=== PATIENT | female | born 1980 | race Caucasian/White ===

== ENCOUNTER 2017-07-17 20:41 | Emergency (ER) | payer SELFPAY ==
[2017-07-17 20:43] VITALS: BP 120/74; PULSE 72; RESP 18; TEMP 97.7; O2SAT 88
[2017-07-17] MEDS ORDERED: SODIUM CHLOR 0.9% 1000 ML INJ 1,000 ML IV ONE (21:11)
[2017-07-17] MEDS ORDERED: PROCHLORPERAZINE INJ 10 MG/2 ML VIAL IVP ONE (21:15)
[2017-07-17] MEDS ORDERED: diphenhydrAMINE HCL 50 MG/ML VIAL IVP ONE (21:15)
[2017-07-17] MEDS ORDERED: SODIUM CHLORIDE 0.9% FLUSH 10 ML FLUSH IVF PRN (21:15)
[2017-07-17] MEDS ORDERED: ACETAMINOPHEN 325 MG TAB PO ONE (21:15)
[2017-07-17 21:36] VITALS: O2SAT 100
[2017-07-17] MEDS ORDERED: PROM25TA10 PO (22:16)
--- NOTE | 2017-07-17 22:16 | PD ---
HPI Chief Complaint: Headache Time Seen by Provider: 21:06 Travel History International Travel<30 days: No Contact w/Intl Traveler<30days: No Traveled to known affect area: No History of Present Illness HPI 37-year-old female complains of frontal headache for 3 days onset was while patient was asleep and she woke up with the pain. It's been constant. She reports a subjective fever. No nausea vomiting reported. She thinks she may have a rash along the posterior neck. She has a history of migraines, most recently a few months prior. Positive photophobia. No loss of consciousness. No weakness. PFSH Past Medical History ?: Not LMP: 07/16/17 Tubal Ligation: Yes Social History Alcohol Use: No Tobacco Use: Yes (1/2 PPD) Substance Use: No Allergies-Medications (Allergen,Severity, Reaction): Coded Allergies: No Known Allergies (Unverified , 07/17/17) Reported Meds & Prescriptions Reported Meds & Active Scripts Active No Active Prescriptions or Reported Medications Review of Systems Except as stated in HPI: all other systems reviewed are Neg Physical Exam Narrative GENERAL: 37 yo F, WNWD, NAD SKIN: Warm and dry. HEAD: Atraumatic. Normocephalic. EYES: Pupils equal and round. No scleral icterus. No injection or drainage. ENT: No nasal bleeding or discharge. Mucous membranes pink and moist. NECK: Trachea midline. No JVD. CARDIOVASCULAR: Regular rate and rhythm. RESPIRATORY: No accessory muscle use. Clear to auscultation. Breath sounds equal bilaterally. GASTROINTESTINAL: Abdomen soft, non-tender, nondistended. Hepatic and splenic margins not palpable. MUSCULOSKELETAL: Extremities without clubbing, cyanosis, or edema. No obvious deformities. NEUROLOGICAL: Awake and alert. Speaking full sentences. The pupils are equal and reactive to light. The extraocular muscles are intact. Normal range of motion and a conjugate gaze. Cerebellar function is normal. PSYCHIATRIC: Appropriate mood and affect; insight and judgment normal. Data Data Last Documented VS Vital Signs Date Time Temp Pulse Resp B/P (MAP) Pulse Ox O2 Delivery O2 Flow Rate FiO2 07/17/17 21:36 100 Room Air 07/17/17 20:43 97.7 72 18 Vital Signs Date Time Temp Pulse Resp B/P (MAP) Pulse Ox O2 Delivery O2 Flow Rate FiO2 07/17/17 21:36 100 Room Air 07/17/17 20:43 97.7 72 18 120/74 (89) 88 Orders Orders Ecg Monitoring (07/17/17 21:11) Iv Access Insert/Monitor (07/17/17 21:11) Oximetry (07/17/17 21:11) Sodium Chloride 0.9% Flush (Ns Flush) (07/17/17 21:15) Acetaminophen (Tylenol) (07/17/17 21:15) Prochlorperazine Inj (Compazine Inj) (07/17/17 21:15) Diphenhydramine Inj (Benadryl Inj) (07/17/17 21:15) Sodium Chlor 0.9% 1000 Ml Inj (Ns 1000 M (07/17/17 21:11) MDM Medical Decision Making Medical Screen Exam Complete: Yes Emergency Medical Condition: Yes Medical Record Reviewed: Yes Differential Diagnosis Migraine, tension headache, cluster headache, hemorrhage, meningitis Narrative Course Patient received IV fluids and Compazine Benadryl Tylenol and experience resolution of symptoms at 10:10 PM. Presentation c/w migraine. Compazine prescription. Diagnosis Primary Impression: Migraine Qualified Codes: G43.909 - Migraine, unspecified, not intractable, without status migrainosus Referrals: Primary Care Physician 2 days Med/Other Pt SpecificInfo: Prescription(s) given Scripts Promethazine (Phenergan) 25 Mg Tablet 25 MG PO Q6H Y for NAUSEA OR VOMITING, #20 TAB 0 Refills Prov: Alejandro Robledo MD 07/17/17 Disposition: 01 DISCHARGE HOME Condition: Stable Alejandro Robledo MD Jul 17, 2017 22:16
== END 2017-07-17 22:53 | disposition home or self-care (01) ==
LOC: NEPE 20:41
DX: G43.909 Migraine, unspecified, not intractable, without status migrainosus (principal); R21 Rash and other nonspecific skin eruption; F17.200 Nicotine dependence, unspecified, uncomplicated
CPT/HCPCS: 96361; 96374; 96375; 99284; J0780; J1200; J7030

== ENCOUNTER 2017-07-31 22:16 | Emergency (ER) | payer SELFPAY ==
[~2017-07-31] VITALS: Ht 165.1 cm; Wt 57.5 kg
[~2017-07-31 22:16] MED LIST: PROM25TA10 PO
[2017-07-31 22:18] VITALS: BP 118/72; PULSE 70; RESP 18; TEMP 97.7; O2SAT 100
[2017-07-31 22:47] VITALS: BP 118/72; PULSE 70; RESP 16; TEMP 97.7; O2SAT 100
--- NOTE | 2017-07-31 23:22 | PD ---
HPI Chief Complaint: Complaint Time Seen by Provider: 23:19 Travel History International Travel<30 days: No Contact w/Intl Traveler<30days: No Traveled to known affect area: No History of Present Illness HPI 37 year-old female presents to the emergency department for complaint of urinary frequency urgency dysuria and hematuria. Patient states that she has had kidney infections and urinary infections in the past and has had symptoms for approximately one week. Patient states due to persistent symptoms decided to come to the emergency room for evaluation. Patient also has history of kidney stones but states not having similar pain or presentation. Patient denies other concerns or complaints. No fever no chills no nausea no vomiting no flank pain and does not report any vaginal discharge or vaginal bleeding or concern for . The patient rates her pain 5 7/10 in intensity. PFSH Past Medical History Narrative Medical Anxiety depression urine tract infections kidney stones tubal ligation and exploratory laparotomy tobacco use Anxiety: Yes Depression: Yes Patient Takes Glucophage: No Tetanus Vaccination: Unknown Influenza Vaccination: No ?: Not LMP: 07/20/2017 Tubal Ligation: Yes Past Surgical History Abdominal Surgery: Yes (EXPLORATORY LAP FOR FB) Gynecologic Surgery: Yes (TL) Social History Alcohol Use: No Tobacco Use: Yes (/2 PPD) Substance Use: No Allergies-Medications (Allergen,Severity, Reaction): Coded Allergies: No Known Allergies (Unverified , 07/31/17) Reported Meds & Prescriptions Reported Meds & Active Scripts Active No Active Prescriptions or Reported Medications Review of Systems Except as stated in HPI: all other systems reviewed are Neg General / Constitutional: No: Fever, Chills HENT: No: Congestion Cardiovascular: No: Chest Pain or Discomfort Respiratory: No: Shortness of Breath Gastrointestinal: Positive: Abdominal Pain, No: Nausea, Vomiting Genitourinary: Positive: Urgency (left lower quadrant tenderness), Frequency, Dysuria, Hematuria, No: Flank Pain Musculoskeletal: No: Myalgias, Arthralgias Skin: No Rash Hematologic/Lymphatic: No: Lymph Node Enlargement Physical Exam Narrative GENERAL: Well-developed well-nourished female in no acute distress no respiratory distress; triage vital signs and normal range SKIN: Warm and dry. HEAD: Normocephalic. EYES: No scleral icterus. No injection or drainage. NECK: Supple, trachea midline. No JVD or lymphadenopathy. CARDIOVASCULAR: Regular rate and rhythm without murmurs, gallops, or rubs. RESPIRATORY: Breath sounds equal bilaterally. No accessory muscle use. GASTROINTESTINAL: Abdomen soft, non-tender, nondistended. MUSCULOSKELETAL: No cyanosis, or edema. BACK: Nontender without obvious deformity. No CVA tenderness. Data Data Last Documented VS Vital Signs Date Time Temp Pulse Resp B/P (MAP) Pulse Ox O2 Delivery O2 Flow Rate FiO2 07/31/17 22:47 97.7 70 16 118/72 (87) 100 Orders Orders Urinalysis - C+S If Indicated (07/31/17 23:19) Ed Urine Pregnancytest Poc (07/31/17 23:19) Urine Culture (07/31/17 23:25) Sulfamet-Trimeth Ds 800-160 Mg (Bactrim (08/01/17 00:15) Phenazopyridine (Pyridium) (08/01/17 00:15) Labs Laboratory Tests Test 07/31/17 23:25 Urine Collection Type CLEAN CATCH Urine Color YELLOW Urine Turbidity CLOUDY Urine pH 7.0 Urine Specific [place] 1.024 Urine Protein 30 mg/dL Urine Glucose (UA) NEG mg/dL Urine Ketones NEG mg/dL Urine Occult Blood MOD Urine Nitrite NEG Urine Bilirubin NEG Urine Leukocyte Esterase SMALL Urine RBC 4-9 /hpf Urine WBC 25-49 /hpf Urine WBC Clumps FEW Urine Squamous Epithelial Cells 0-3 /hpf Urine Bacteria FEW /hpf Microscopic Urinalysis Comment CULTURE INDICATED MDM Medical Decision Making Medical Screen Exam Complete: Yes Emergency Medical Condition: Yes Medical Record Reviewed: Yes Interpretation(s) ua: Positive red blood cells white blood cells clumped white blood cells bacteria and leukocyte Estrace culture indicated Differential Diagnosis UTI/cystitis, pyelonephritis, obstructive uropathy, kidney stone, diverticulitis , ovarian cysts, ectopic Narrative Course Specimen collected and sent for resulting Patient with abnormal urinalysis will start on oral antibiotic and will will need to follow-up with primary care provider Diagnosis Primary Impression: UTI (urinary tract infection) Referrals: Primary Care Physician call for appointment Patient Instructions: General Instructions Med/Other Pt SpecificInfo: Prescription(s) given Scripts Phenazopyridine (Pyridium) 100 Mg Tab 100 MG PO Q8H Y for DYSURIA, #6 TAB 0 Refills Prov: Violette Gonzáles MD 12/5/17 Sulfamethoxazole-Trimethoprim (Bactrim DS) 800-160 Mg Tab 1 TAB PO BID for Infection, #20 TAB 0 Refills Prov: Violette Gonzáles MD 08/01/17 Disposition: 01 DISCHARGE HOME Condition: Stable Violette Gonzáles MD Jul 31, 2017 23:22
[2017-07-31 23:34] LABS: BLOOD, URINE MOD (NEG); GLUCOSE,URINE NEG (NEG); KETONE, URINE NEG (NEG); NITRITE,URINE NEG (NEG)
[2017-07-31 23:40] LABS: METHOD OF COLLECTION CLEAN CATCH; SQUAMOUS EPITHELIAL CELL URINE 0-3 /hpf (0-5); URINE COLOR YELLOW (YELLW/STRAW)
[2017-07-31 23:41] LABS: BACTERIA, URINE FEW /hpf; COMMENT (UR) CULTURE INDICATED; CULTURE IF INDICATED CULTURE INDICATED
[2017-08-01] MEDS ORDERED: PHEN0.4T PO (00:04)
[2017-08-01] MEDS ORDERED: BACT800T5 PO (00:04)
[2017-08-01 00:15] VITALS: BP 120/74; TEMP 98
[2017-08-01] MEDS ORDERED: SULFAMETHOXAZOLE-TRIMETHOPRIM DS 800-160 MG TAB PO ONE (00:15)
[2017-08-01] MEDS ORDERED: PHENAZOPYRIDINE HCL 100 MG TAB PO ONE (00:15)
== END 2017-08-01 00:31 | disposition home or self-care (01) ==
LOC: PHED 22:16
DX: N39.0 Urinary tract infection, site not specified (principal); B96.89 Other specified bacterial agents as the cause of diseases classified elsewhere; R31.9 Hematuria, unspecified; F17.200 Nicotine dependence, unspecified, uncomplicated
CPT/HCPCS: 81001; 84703; 87086; 99284